=== PATIENT | female | born 1990 | race Caucasian/White ===

== ENCOUNTER 2019-08-24 20:32 | Emergency (ER) | payer SELFPAY ==
[~2019-08-24] VITALS: Ht 154.9 cm; Wt 54.5 kg
[~2019-08-24 20:32] MED LIST: NOCURR
[2019-08-24 21:02] VITALS: BP 94/59
== END 2019-08-24 22:00 | disposition left against medical advice (07) ==
LOC: EMS 20:34
DX: R50.9 Fever, unspecified (principal); Z53.21 Procedure and treatment not carried out due to patient leaving prior to being seen by health care provider